=== PATIENT | female | born 1955 | race Hispanic/Latino ===

== ENCOUNTER 2017-07-02 10:03 | Emergency (ER) | payer MEDICAID ==
[2017-07-02] MEDS ORDERED: SODIUM CHLORIDE 0.9% 1000ML 1,000 ML IV ONE (10:40)
[2017-07-02] MEDS ORDERED: ONDANSETRON HCL 4 MG/2 ML VIAL ONE (10:40)
[2017-07-02 10:46] LABS: BASOPHILS % (AUTO) 0.5 % (0.0-5.0); EOSINOPHILS % (AUTO) 0.5 % (0.0-8.0); HEMATOCRIT 38.7 % (36-48); LYMPHOCYTES % (AUTO) 12.4 % (21.0-51.0); MEAN CORPUSCULAR HEMOGLOBIN 28.5 pg (27.0-33.0); MEAN CORPUSCULAR VOLUME 83.8 fL (79-99); MONOCYTES % (AUTO) 6.3 % (3.0-13.0); NEUTROPHILS % (AUTO) 80.3 % (40.0-77.0); NUCLEATED RED BLOOD CELLS 0.1 % (0.0-0.19); PLATELET COUNT (AUTO) 262 K/uL (130-400); RED BLOOD CELL COUNT(AUTO) 4.62 MIL/uL (4.00-5.50); WHITE BLOOD COUNT (AUTO) 7.9 K/uL (4.8-10.8)
[2017-07-02 10:56] LABS: CREATININE 1.4 mg/dL (0.5-1.5); POTASSIUM 3.1 mmol/L (3.5-5.1)
[2017-07-02 11:01] LABS: ALBUMIN 3.4 g/dL (3.5-5.0); BILIRUBIN,TOTAL 0.5 mg/dL (0.2-1.0); TOTAL PROTEIN, SERUM 7.3 g/dL (6.0-8.3)
[2017-07-02 11:36] LABS: APPEARANCE,URINE Cloudy (CLEAR); BILIRUBIN,URINE Negative (NEGATIVE); COLOR,URINE Yellow (YELLOW); GLUCOSE, URINE (UA) Negative (NEGATIVE); KETONES,URINE Negative (NEGATIVE); LEUKOCYTE ESTERASE ,URINE Negative (NEGATIVE); NITRATE,URINE Negative (NEGATIVE); OCCULT BLOOD,URINE Negative (NEGATIVE); PH,URINE 5.5 (5.0-8.0); PROTEIN,URINE POS 1+ (NEGATIVE); UROBILINOGEN,URINE 0.2 mg/dL (0.2-1.0)
[2017-07-02 11:47] LABS: BACTERIA,URINE Few /HPF (None Seen); MUCUS,URINE Few LPF (None Seen); RBC,URINE 0-1 /HPF (0-1); SQUAMOUS EPITHELIAL CELL,UR Rare /LPF (0-2)
[2017-07-02] MEDS ORDERED: POTASSIUM CHLORIDE 20 MEQ ERTAB PO ONE (12:23)
== END 2017-07-02 13:05 | disposition home or self-care (01) ==
LOC: EDH 10:03
DX: K52.9 Noninfective gastroenteritis and colitis, unspecified (principal); E87.6 Hypokalemia; E86.0 Dehydration; M19.90 Unspecified osteoarthritis, unspecified site; E78.5 Hyperlipidemia, unspecified; I10 Essential (primary) hypertension
CPT/HCPCS: 36415; 80053; 81001; 85025; 87804 ×2; 96361; 96374; 99285; J2405; J7030

== ENCOUNTER 2017-08-29 17:58 | Emergency (ER) | payer MEDICAID ==
[2017-08-29 19:20] LABS: BASOPHILS % (AUTO) 1.1 % (0.0-5.0); EOSINOPHILS % (AUTO) 1.7 % (0.0-8.0); HEMATOCRIT 33.1 % (36-48); LYMPHOCYTES % (AUTO) 33.1 % (21.0-51.0); MEAN CORPUSCULAR HEMOGLOBIN 29.5 pg (27.0-33.0); MEAN CORPUSCULAR HGB CONC 34.8 g/dL (32.0-36.0); MEAN CORPUSCULAR VOLUME 84.7 fL (79-99); MONOCYTES % (AUTO) 8.9 % (3.0-13.0); NEUTROPHILS % (AUTO) 55.2 % (40.0-77.0); PLATELET COUNT (AUTO) 221 K/uL (130-400); RED CELL DISTRIBUTION WIDTH 14.4 % (11.0-15.5)
[2017-08-29 19:31] LABS: CREATININE 0.9 mg/dL (0.5-1.5); POTASSIUM 3.9 mmol/L (3.5-5.1)
[2017-08-29 19:33] LABS: INR 0.94 (0.85-1.15); PARTIAL THROMBOPLASTIN TIME 25.8 SEC (26.3-35.5); PROTHROMBIN TIME 9.9 SEC (9.6-11.6)
[2017-08-29 19:36] LABS: ALBUMIN 3.8 g/dL (3.5-5.0); BILIRUBIN,TOTAL 0.4 mg/dL (0.2-1.0); TOTAL PROTEIN, SERUM 7.4 g/dL (6.0-8.3)
[2017-08-29] MEDS ORDERED: FUROSEMIDE 10 MG/ML 4ML VIAL ONE (19:52)
[2017-08-29 20:36] LABS: APPEARANCE,URINE Clear (CLEAR); BILIRUBIN,URINE Negative (NEGATIVE); COLOR,URINE Yellow (YELLOW); GLUCOSE, URINE (UA) Negative (NEGATIVE); KETONES,URINE Negative (NEGATIVE); LEUKOCYTE ESTERASE ,URINE Negative (NEGATIVE); NITRATE,URINE Negative (NEGATIVE); OCCULT BLOOD,URINE Negative (NEGATIVE); PH,URINE 6.5 (5.0-8.0); PROTEIN,URINE Negative (NEGATIVE); UROBILINOGEN,URINE 0.2 mg/dL (0.2-1.0)
== END 2017-08-29 22:35 | disposition home or self-care (01) ==
LOC: EDH 17:58
DX: R60.0 Localized edema (principal); Z79.899 Other long term (current) drug therapy; Z90.710 Acquired absence of both cervix and uterus; Z90.49 Acquired absence of other specified parts of digestive tract
CPT/HCPCS: 36415; 71046; 80053; 81003; 83880; 85025; 85610; 85730; 93005; 93970; 96374; 99285; J1940

== ENCOUNTER → 2018-02-21 | Outpatient (CLI) | payer MEDICAID | END | disposition home or self-care (01) | LOC: SHCH 15:04 | PROVIDERS: ATTEND Internal Medicine Cardiovascular Disease | DX: I87.2 Venous insufficiency (chronic) (peripheral) (principal) | CPT/HCPCS: 93970 ==

== ENCOUNTER 2018-08-19 21:18 | Emergency (ER) | payer MEDICAID ==
[2018-08-19] MEDS ORDERED: METHYLPREDNISOLONE SOD SUCC 40MG/ML 1ML ONE (22:35)
[2018-08-19] MEDS ORDERED: BENZONATATE 100 MG CAPSULE PO ONE (22:36)
[2018-08-19 22:40] LABS: BASOPHILS % (AUTO) 0.7 % (0.0-5.0); EOSINOPHILS % (AUTO) 4.2 % (0.0-8.0); HEMATOCRIT 35.4 % (36-48); LYMPHOCYTES % (AUTO) 23.8 % (21.0-51.0); MEAN CORPUSCULAR HEMOGLOBIN 28.9 pg (27.0-33.0); MEAN CORPUSCULAR HGB CONC 33.4 g/dL (32.0-36.0); MEAN CORPUSCULAR VOLUME 86.7 fL (79-99); MONOCYTES % (AUTO) 8.7 % (3.0-13.0); NEUTROPHILS % (AUTO) 62.6 % (40.0-77.0); PLATELET COUNT (AUTO) 189 K/uL (130-400); RED BLOOD CELL COUNT(AUTO) 4.09 MIL/uL (4.00-5.50); RED CELL DISTRIBUTION WIDTH 14.1 % (11.0-15.5); WHITE BLOOD COUNT (AUTO) 7.5 K/uL (4.8-10.8)
[2018-08-19] MEDS ORDERED: ACETAMINOPHEN EXTRA STRENGTH 500 MG TABLET ONE (22:47)
[2018-08-19 22:50] LABS: CREATININE 0.8 mg/dL (0.5-1.5); POTASSIUM 4.3 mmol/L (3.5-5.1)
[2018-08-19 22:55] LABS: ALBUMIN 3.6 g/dL (3.5-5.0); BILIRUBIN,TOTAL 0.5 mg/dL (0.2-1.0); TOTAL PROTEIN, SERUM 6.9 g/dL (6.0-8.3)
[2018-08-19] MEDS ORDERED: IPRATROPIUM/ALBUTEROL SULFATE 3 ML SOLUTION IH ONE (22:57)
[2018-08-19 23:09] LABS: INR 0.95 (0.85-1.15); PARTIAL THROMBOPLASTIN TIME 30.8 SEC (26.3-35.5)
[2018-08-19 23:29] LABS: B-TYPE NATRIURETIC PEPTIDE 8 pg/mL (0-100)
== END 2018-08-19 23:54 | disposition home or self-care (01) ==
LOC: EDH 21:18
DX: J20.9 Acute bronchitis, unspecified (principal); E78.5 Hyperlipidemia, unspecified; I10 Essential (primary) hypertension; Z90.49 Acquired absence of other specified parts of digestive tract; Z90.710 Acquired absence of both cervix and uterus
CPT/HCPCS: 36415; 71046; 80053; 82550; 83880; 84484; 85025; 85610; 85730; 87804 ×2; 94640; 96374; 99284; J2920

== ENCOUNTER → 2018-10-28 | Outpatient (CLI) | payer MEDICAID | END | disposition home or self-care (01) | LOC: SHCH 14:41 | PROVIDERS: ATTEND Internal Medicine Cardiovascular Disease | DX: Z09 Encounter for follow-up examination after completed treatment for conditions other than malignant neoplasm (principal) | CPT/HCPCS: 93971 ==

== ENCOUNTER 2018-11-23 08:13 | Emergency (ER) | payer MEDICAID ==
[2018-11-23 09:13] LABS: BASOPHILS % (AUTO) 0.6 % (0.0-5.0); EOSINOPHILS % (AUTO) 2.7 % (0.0-8.0); HEMATOCRIT 32.9 % (36-48); LYMPHOCYTES % (AUTO) 34.6 % (21.0-51.0); MEAN CORPUSCULAR HEMOGLOBIN 29.3 pg (27.0-33.0); MEAN CORPUSCULAR HGB CONC 34.2 g/dL (32.0-36.0); MEAN CORPUSCULAR VOLUME 85.8 fL (79-99); MONOCYTES % (AUTO) 5.9 % (3.0-13.0); NEUTROPHILS % (AUTO) 56.2 % (40.0-77.0); PLATELET COUNT (AUTO) 186 K/uL (130-400); RED BLOOD CELL COUNT(AUTO) 3.83 MIL/uL (4.00-5.50); RED CELL DISTRIBUTION WIDTH 13.8 % (11.0-15.5); WHITE BLOOD COUNT (AUTO) 7.3 K/uL (4.8-10.8)
[2018-11-23 09:20] LABS: CREATININE 0.8 mg/dL (0.5-1.5); POTASSIUM 4.2 mmol/L (3.5-5.1)
[2018-11-23 09:23] LABS: PARTIAL THROMBOPLASTIN TIME 29.5 SEC (26.3-35.5); PROTHROMBIN TIME 10.5 SEC (9.6-11.6)
[2018-11-23 09:29] LABS: ALBUMIN 3.6 g/dL (3.5-5.0); B-TYPE NATRIURETIC PEPTIDE 66 pg/mL (0-100); BILIRUBIN,TOTAL 0.7 mg/dL (0.2-1.0)
[2018-11-23 09:38] LABS: APPEARANCE,URINE Clear (CLEAR); BILIRUBIN,URINE Negative (NEGATIVE); COLOR,URINE Yellow (YELLOW); GLUCOSE, URINE (UA) Negative (NEGATIVE); KETONES,URINE Negative (NEGATIVE); LEUKOCYTE ESTERASE ,URINE Negative (NEGATIVE); NITRATE,URINE Negative (NEGATIVE); OCCULT BLOOD,URINE Negative (NEGATIVE); PH,URINE 6.5 (5.0-8.0); PROTEIN,URINE Negative (NEGATIVE)
== END 2018-11-23 11:03 | disposition home or self-care (01) ==
LOC: EDH 08:13
DX: R60.1 Generalized edema (principal); I10 Essential (primary) hypertension; E78.5 Hyperlipidemia, unspecified; Z90.49 Acquired absence of other specified parts of digestive tract; Z90.710 Acquired absence of both cervix and uterus
CPT/HCPCS: 36415; 71045; 80053; 81003; 82550; 83880; 84443; 84484; 85025; 85610; 85730; 93005; 93970

== ENCOUNTER 2022-12-17 11:33 | Emergency (ER) | payer OTHER, MEDICARE ==
[~2022-12-17] VITALS: Ht 154.9 cm; Wt 107.5 kg
[2022-12-17 15:36] VITALS: BP 166/85
[2022-12-17 15:49] LABS: APPEARANCE,URINE CLEAR (CLEAR); BILIRUBIN,URINE NEGATIVE (NEGATIVE); COLOR,URINE LIGHT-YELLOW (YELLOW); GLUCOSE, URINE (UA) NEGATIVE (NEGATIVE); KETONES,URINE NEGATIVE (NEGATIVE); LEUKOCYTE ESTERASE ,URINE NEGATIVE Leu/uL (NEGATIVE); NITRATE,URINE NEGATIVE (NEGATIVE); OCCULT BLOOD,URINE NEGATIVE (NEGATIVE); PROTEIN,URINE NEGATIVE (NEGATIVE); UROBILINOGEN,URINE 0.2 mg/dL (0.2-1.0)
[2022-12-17] MEDS ORDERED: OXYC-38 PO (16:02)
[2022-12-17] MEDS ORDERED: NAPR-1180 PO (16:02)
== END 2022-12-17 16:34 | disposition home or self-care (01) ==
LOC: EDH 11:33
DX: S83.8X2A Sprain of other specified parts of left knee, initial encounter (principal); I10 Essential (primary) hypertension; E11.59 Type 2 diabetes mellitus with other circulatory complications; Z90.49 Acquired absence of other specified parts of digestive tract; E03.9 Hypothyroidism, unspecified; Z90.710 Acquired absence of both cervix and uterus; Z98.890 Other specified postprocedural states; X58.XXXA Exposure to other specified factors, initial encounter; Y93.89 Activity, other specified; Y92.89 Other specified places as the place of occurrence of the external cause; Y99.8 Other external cause status
CPT/HCPCS: 73564; 81003

== ENCOUNTER → 2023-01-24 | Outpatient (CLI) | payer OTHER, MEDICARE ==
[~2023-01-24] MED LIST: NAPR-1180 PO; OXYC-38 PO
== END | disposition home or self-care (01) ==
LOC: CANPRECLI → RAH 07:37
PROVIDERS: ATTEND Family Medicine
DX: S83.242A Other tear of medial meniscus, current injury, left knee, initial encounter (principal); S83.8X2D Sprain of other specified parts of left knee, subsequent encounter; M17.12 Unilateral primary osteoarthritis, left knee; M70.50 Other bursitis of knee, unspecified knee; M25.462 Effusion, left knee; X58.XXXD Exposure to other specified factors, subsequent encounter; X58.XXXA Exposure to other specified factors, initial encounter; Y93.89 Activity, other specified; Y92.89 Other specified places as the place of occurrence of the external cause; Y99.8 Other external cause status
CPT/HCPCS: 73721

== ENCOUNTER 2023-12-03 05:49 | Observation (INO) | payer OTHER, MEDICARE ==
[2023-11-27 09:41] LABS: BASOPHILS # (AUTO) 0.03 K/uL (0.00-0.20); BASOPHILS % (AUTO) 0.3 % (0.0-5.0); EOSINOPHILS # (AUTO) 0.11 K/uL (0.00-0.70); EOSINOPHILS % (AUTO) 1.3 % (0.0-8.0); HEMATOCRIT 40.5 % (36-48); IMMATURE GRANULOCYTE ABSOLUTE 0.03 K/uL (0-1); LYMPHOCYTES # (AUTO) 2.7 K/uL (1.0-4.8); LYMPHOCYTES % (AUTO) 31.5 % (21.0-51.0); MEAN CORPUSCULAR HEMOGLOBIN 28.7 pg (27.0-33.0); MEAN CORPUSCULAR HGB CONC 32.8 g/dL (32.0-36.0); MEAN CORPUSCULAR VOLUME 87.5 fL (79-99); MONOCYTES # (AUTO) 0.4 K/uL (0.1-1.0); MONOCYTES % (AUTO) 4.4 % (3.0-13.0); NEUTROPHILS # (AUTO) 5.3 K/uL (1.8-7.7); NEUTROPHILS % (AUTO) 62.2 % (40.0-77.0); PLATELET COUNT (AUTO) 226 K/uL (130-400); RED BLOOD CELL COUNT(AUTO) 4.63 MIL/uL (4.00-5.50); RED CELL DISTRIBUTION WIDTH 13.2 % (11.0-15.5); WHITE BLOOD COUNT (AUTO) 8.6 K/uL (4.8-10.8)
[2023-11-27 09:42] VITALS: BP 181/73; PULSE 76; RESP 19
[2023-11-27 09:54] LABS: APPEARANCE,URINE CLEAR (CLEAR); BILIRUBIN,URINE NEGATIVE (NEGATIVE); COLOR,URINE COLORLESS (YELLOW); GLUCOSE, URINE (UA) NEGATIVE (NEGATIVE); KETONES,URINE NEGATIVE (NEGATIVE); LEUKOCYTE ESTERASE ,URINE NEGATIVE Leu/uL (NEGATIVE); NITRATE,URINE NEGATIVE (NEGATIVE); OCCULT BLOOD,URINE NEGATIVE (NEGATIVE); PROTEIN,URINE NEGATIVE (NEGATIVE); UROBILINOGEN,URINE 0.2 mg/dL (0.2-1.0)
[2023-11-27 09:56] LABS: ALBUMIN 3.8 g/dL (3.5-5.0); CREATININE 0.8 mg/dL (0.5-1.0); POTASSIUM 3.8 mmol/L (3.5-5.1)
[2023-11-27 09:57] LABS: INR <= 0.93 (0.85-1.15); PROTHROMBIN TIME 10.7 SEC (9.6-11.6)
[2023-11-27 09:58] LABS: PARTIAL THROMBOPLASTIN TIME 27.2 SEC (26.3-35.5)
[2023-11-27 10:09] LABS: ADD UA MICROSCOPIC NO
[2023-12-03] VITALS (26 sets, daily range): BP systolic 132–202; BP diastolic 51–102; PULSE 81–100; RESP 13–20; O2SAT 95–97
[~2023-12-03] VITALS: Ht 157.5 cm; Wt 105.1 kg
[~2023-12-03 05:49] MED LIST changes: +ATOR40TA71 PO; +CARV25TA PO; +FURO20TA4 PO; +LEVO50TA11 PO; +LOSA50TA64 PO; +MIRA25TA PO; -NAPR-1180 PO; +OMEGA-3 PO; +ONE A DAY WOMEN'S PO; -OXYC-38 PO; +SEMA1PEN3 SQ
[2023-12-03] MEDS ORDERED: KETOROLAC 30MG VIAL (30MG/ML) ONE (06:26)
[2023-12-03] MEDS ORDERED: TRANEXAMIC ACID 1000MG/10ML ONE (06:27)
[2023-12-03] MEDS ORDERED: ROPIVACAINE 0.5% 5MG/ML 30ML ONE ×2 (06:27→06:43)
[2023-12-03] MEDS ORDERED: KETAMINE 50MG/ML SYRINGE 50 MG/ML DISP.SYRIN ONE (06:43)
[2023-12-03] MEDS ORDERED: LIDOCAINE PF 100MG/5ML (2%) SYRINGE 5ML ONE (06:51)
[2023-12-03] MEDS ORDERED: FENTANYL CITRATE PF 50 MCG/1 ML 2ML VIAL ONE ×2 (06:52→08:01)
[2023-12-03] MEDS ORDERED: ROCURONIUM BROMIDE 10MG/1ML 5ML VL ONE (06:52)
[2023-12-03] MEDS ORDERED: PROPOFOL 10 MG/ML 20ML VIAL IV ONE ×2 (06:52→08:00)
[2023-12-03] MEDS: CEFAZOLIN SODIUM 2 GM VIAL ONE (07:01)
[2023-12-03] MEDS: 0.9%NACL 1000ML 1,000 ML IV ONE (07:01)
[2023-12-03] MEDS ORDERED: DEXAMETHASONE SOD PHOSPHATE 10MG/ML 1ML VIAL ONE (07:26)
[2023-12-03] MEDS ORDERED: ONDANSETRON 4MG INJ ONE (07:28)
[2023-12-03] MEDS: CEFAZOLIN SODIUM 2 GM VIAL IVPB ONE (07:30)
[2023-12-03] MEDS: TRANEXAMIC ACID 1000MG/10ML IV ONE (08:05)
[2023-12-03] MEDS ORDERED: NEOSTIGMINE METHYLSULFATE 1MG/ML IV ONE (08:26)
[2023-12-03] MEDS ORDERED: GLYCOPYRROLATE 0.2 MG/ML 5 ML VIAL ONE (08:26)
[2023-12-03] MEDS ORDERED: MIDAZOLAM HCL 1 MG/ML 2ML VIAL ONE (08:39)
[2023-12-03] MEDS ORDERED: POTASSIUM CHLORIDE 10% ELIXIR 20 MEQ/15 ML UDCUP PO PRN (09:30)
[2023-12-03] MEDS ORDERED: FERROUS FUMARATE 324 MG TABLET PO PRN (09:30)
[2023-12-03] MEDS: KETOROLAC 15MG/ML VIAL (15MG/ML) IV SCH (09:30)
[2023-12-03] MEDS ORDERED: ONDANSETRON 4MG INJ IVP PRN (09:30)
[2023-12-03] MEDS ORDERED: CYCLOBENZAPRINE HCL 10 MG TABLET PO PRN (09:30)
[2023-12-03] MEDS ORDERED: CALCIUM CARB 500MG PO PRN (09:30)
[2023-12-03] MEDS ORDERED: POTASSIUM CHLORIDE 20MEQ/100ML 100 ML IV PRN (09:30)
[2023-12-03] MEDS ORDERED: KCL 20 MEQ ERTAB PO PRN (09:30)
[2023-12-03] MEDS ORDERED: DiphenhydrAMINE HCL 50 MG/ML VIAL IVP PRN (09:30)
[2023-12-03] MEDS: KETOROLAC 15MG/ML VIAL (15MG/ML) ONE (09:58)
[2023-12-03] MEDS: LABETALOL 20MG SYG IV ONE ×3 (10:34→16:24)
[2023-12-03] MEDS: FAMOTIDINE 20MG VIAL IV ONE (11:00)
[2023-12-03] MEDS: ACETAMINOPHEN 1,000 MG/100 ML VIAL IV ONE (11:00)
[2023-12-03] MEDS: INSULIN HUMULIN R 100 UNIT/ML 3ML SQ SCH (11:19)
[2023-12-03] MEDS: 0.9%NACL 1000ML 1,000 ML IV SCH (11:19)
[2023-12-03] MEDS: HYDROCODONE/ACETAMINOPHEN 5/325 MG TAB PO PRN (14:30)
[2023-12-03] MEDS: CEFAZOLIN SODIUM 2 GM VIAL IVPB SCH (14:33)
[2023-12-03] MEDS: GABAPENTIN 100 MG CAPSULE PO SCH (14:33)
[2023-12-03] MEDS: HYDROXYZINE 10 MG TABLET PO SCH (19:23)
[2023-12-03] MEDS: DOCUSATE SODIUM 100 MG CAP PO SCH (20:49)
[2023-12-03] MEDS: FUROSEMIDE 20 MG TABLET PO SCH (20:49)
[2023-12-03] MEDS: CARVEDILOL 25 MG TABLET PO SCH (20:50)
[2023-12-03] MEDS: TRAMADOL HCL 50 MG TABLET PO PRN (20:51)
[2023-12-03] MEDS: CYCLOBENZAPRINE HCL 10 MG TABLET PO SCH (22:30)
[2023-12-04] VITALS (7 sets, daily range): BP systolic 93–149; BP diastolic 37–68; PULSE 71–97; RESP 12–18; O2SAT 95–97
[2023-12-04] MEDS: LEVOTHYROXINE 50 MCG TABLET PO SCH (05:35)
[2023-12-04 05:36] LABS: HEMATOCRIT 28.3 % (36-48); MEAN CORPUSCULAR HEMOGLOBIN 29.5 pg (27.0-33.0); MEAN CORPUSCULAR HGB CONC 33.2 g/dL (32.0-36.0); MEAN CORPUSCULAR VOLUME 88.7 fL (79-99); RED BLOOD CELL COUNT(AUTO) 3.19 MIL/uL (4.00-5.50); RED CELL DISTRIBUTION WIDTH 13.4 % (11.0-15.5); WHITE BLOOD COUNT (AUTO) 9.8 K/uL (4.8-10.8)
[2023-12-04 06:03] LABS: CREATININE 0.9 mg/dL (0.5-1.0); POTASSIUM 3.5 mmol/L (3.5-5.1)
[2023-12-04] MEDS: ASPIRIN 325MG EC TAB PO SCH (08:24)
[2023-12-04] MEDS: ATORVASTATIN 40 MG TABLET PO SCH (08:24)
[2023-12-04] MEDS: LOSARTAN 50 MG TABLET PO SCH (08:25)
[2023-12-04] MEDS: POLYETHYLENE GLYCOL 3350 17 GM POWD.PACK PO SCH (08:25)
[2023-12-04] MEDS: KETOROLAC 15MG/ML VIAL (15MG/ML) IV PRN (10:00)
[2023-12-05] VITALS: BP 135/85; PULSE 82; RESP 18
[2023-12-05 04:08] VITALS: BP 127/64; PULSE 87; RESP 18
[2023-12-05 07:57] VITALS: BP 113/52; PULSE 77; RESP 17
[2023-12-05 08:00] VITALS: O2SAT 97
[2023-12-05 11:50] VITALS: BP 92/47; PULSE 75; RESP 17
[2023-12-05] MEDS ORDERED: HYDR-4060 PO (13:29)
[2023-12-05] MEDS ORDERED: HYDR-3830 PO (13:29)
[2023-12-05] MEDS ORDERED: CYCL-309 PO (13:29)
[2023-12-05] MEDS ORDERED: DOCU-116 PO (13:29)
[2023-12-05] MEDS ORDERED: ASPI-891 PO (13:29)
[2023-12-06] MEDS ORDERED: BISACODYL 10 MG SUPP.RECT RC PRN (09:30)
[2023-12-10] MEDS ORDERED: Semaglutide (Ozempic) 1 MG SQ SCH (09:00)
== END 2023-12-05 17:50 ==
LOC: DAH 05:49 → SUH 05:49 → DAHIP 05:50 → SUH 05:50 → 4DH 11:00
PROVIDERS: ADMIT Student in an Organized Health Care Education/Training Program; ATTEND Student in an Organized Health Care Education/Training Program
DX: M17.12 Unilateral primary osteoarthritis, left knee (principal); M25.562 Pain in left knee; F41.9 Anxiety disorder, unspecified; D62 Acute posthemorrhagic anemia; Z79.899 Other long term (current) drug therapy; Z98.890 Other specified postprocedural states; Z79.82 Long term (current) use of aspirin
CPT/HCPCS: 82040; 80048 ×2; 85025; 85610; 85730; 87086; 84134; 86140; 81003; 36415 ×2; 87641; 96375; 64447; 96376 ×3; 96365; 96366; 27447; 82948 ×9; 73560; 97161; 97530 ×8; 85027; 97116 ×4; G0378 ×53; A4663; J7030 ×2; A4215 ×2; J3490 ×7; J3010 ×2; J1100; J2001; J2250; J2704 ×2; J2405; J1885 ×7; J2710; J2795 ×3; J0690 ×4; G0168; A4649 ×2; A4930; C1713; C1776; A6255; A5120; A4223; A4222; A4221